=== PATIENT | male | born 1975 | race Two or more races ===

== ENCOUNTER 2024-10-16 01:57 | Inpatient (IN) | payer OTHER, SELFPAY ==
--- NOTE | ~2024-10-16 | CT_ITS ---
EXAMINATION: CT FOREARM WITH CONTRAST, LEFT CLINICAL INFORMATION: Severe pain and erythema with limited range of motion, left forearm. COMPARISON: None available. TECHNIQUE: Contiguous axial images through the left forearm using 3 mm collimation following the IV contrast administration 85 cc Omnipaque 350 strength without reported immediate complications. Sagittal and coronal reformatted images acquired. This CT examination was performed using dose optimization techniques as appropriate, variously including the following: *Automated exposure control *Adjustment of mA and/or kV according to patient size (this includes techniques or standardized protocols for targeted exams where dose is matched to indication/reason for exam; i.e. extremities or head) *Use of iterative reconstruction technique DLP: 178 mGy centimeter. FINDINGS: There is a peripheral enhancing lobulated and possibly loculated fluid density collection in the radiocarpal and to a lesser extent ulnar carpal compartment of the left wrist. I do not see gross osteolysis in the carpal bones or distal radius or ulna. There is edema pattern in a circumferential fashion extending from the skin to the fat planes of the left forearm from the elbow to wrist. The radius and ulna are intact. The vessels are patent. No gross fluid collections within the muscular structures of the left forearm. No acute cortical disruption or malalignment in the left elbow.. CT/CT forearm LT w IV con IMPRESSION: Concerning septic arthritis, left wrist and associated cellulitis, left forearm. Discussed with the physician assistant press operator Madelin Deleon at 10:10 AM. Electronically signed by: Tavon Zheng MD 10/16/2024 10:11 AM [facility]
--- NOTE | ~2024-10-16 | XR_ITS ---
EXAMINATION: XR FOREARM, LEFT CLINICAL INFORMATION: Question septic arthritis COMPARISON: CT postcontrast of the left forearm and wrist earlier same day. TECHNIQUE: AP and lateral views of the left forearm were obtained. FINDINGS: Normal bone mineralization. No fracture, dislocation, or suspicious bone lesion. No regional ostial lysis or focal osteopenia. Normal alignment. No elbow joint effusion. Diffuse subcutaneous soft tissue edema. XR/XR forearm LT 2V IMPRESSION: 1. No acute bony abnormalities. 2. Diffuse subcutaneous soft tissue edema. 3. Refer to the highly more specific and sensitive CT examination performed earlier same day. Electronically signed by: Dwayne Chaudhary MD 10/16/2024 01:03 PM [facility]
[2024-10-16 03:04] VITALS: BP 109/65; PULSE 118; RESP 12; TEMP 37.4; O2SAT 92; BMI 22.2
[2024-10-16 03:29] LABS: Hematocrit 34.2 % (42.0-52.0); Hemoglobin 11.5 g/dl (14.0-18.0); Mean Corpuscular HGB Conc 33.6 g/dl (31.0-36.0); Mean Corpuscular Hemoglobin 30.1 pg (27.0-33.0); Mean Corpuscular Volume 89.5 fL (80.0-98.0); Mean Platelet Volume 8.7 fL (9.4-12.4); Platelet Count 280 X10*3/uL (160-400); Red Blood Count 3.82 X10*6/uL (4.60-5.80); Red Cell Distribution Width 14.1 % (11.0-16.0); White Blood Count 4.5 X10*3/uL (4.8-10.8)
[2024-10-16 03:43] LABS: Alanine Aminotransferase 83 U/L (0-40); Albumin Level 3.6 g/dL (3.5-5.0); Alkaline Phosphatase 103 U/L (39-117); Anion Gap 9 (12-20); Aspartate Amino Transferase 76 U/L (5-37); Bilirubin Total 0.4 mg/dL (0.0-1.0); Blood Urea Nitrogen 16 mg/dL (9-16); Calcium 8.5 mg/dL (8.4-10.2); Carbon Dioxide 27 mmol/L (22-29); Chloride 106 mmol/L (96-108); Creatinine Clr Calc Pharmacy 105.9; Estimated Glomerular Filt Rate > 60; Glucose Random 87 mg/dL (60-115); Potassium 4.4 mmol/L (3.3-5.1); Sodium 138 mmol/L (135-145); Total Protein 7.7 g/dL (6.5-8.0)
--- NOTE | 2024-10-16 07:37 | ED_ITS ---
HPI - Extremity Problem General Chief complaint: Skin/Abscess/Foreign Body Stated complaint: infection on arm? Time Seen by Provider: 10/16/24 07:16 Source: patient Mode of arrival: ambulatory Limitations: no limitations History of Present Illness ED Provider: Ramona Deleon PA-C HPI Narrative: 48 yo male with history of opioid use disorder, uses IV drugs who presents to the ER for evaluation of worsening left forearm pain, swelling and redness for the last 2 day after injecting in the area. He reports he can't move his left arm well due to severe pain in the left forearm. He denies pain in the elbow but has pain in the wrist. Denies numbness or tingling. No fevers. Poor historian, lethargic. MD Complaint: extremity pain and extremity swelling Onset (ago): day(s) (2) Pain Consistency: constant Location: left and upper extremity Severity scale (1-10): 10 Quality: stabbing and aching Radiation: distal Relieving factors: immobilization Exacerbating factors: range of motion and palpation Associated symptoms: myalgias, arthralgias and rash Context: other (IVDA) Related Data Allergies Allergy/AdvReac Type Severity Reaction Status Date / Time No Known Allergies Allergy Unverified 10/16/24 03:06 [No Known Allergies*] Review of Systems 2 Review of Systems: Yes all other systems are reviewed and are negative [facility] Social History Social History Advance Directives: No Advance Directives Information Provided: Yes Physical Exam 2 Vital Signs: Vital Signs: Last Vital Signs Temp 99.3 F 10/16/24 03:04 Pulse 78 10/16/24 08:53 Resp 11 L 10/16/24 08:53 BP 115/78 10/16/24 08:53 Pulse Ox 96 10/16/24 08:53 O2 Del Method Room Air 10/16/24 08:53 BMI result Body Mass Index 22.2 Appearance: Lethargic, disheveled, poorly kempt Head: normocephalic, atraumatic. Eyes: Pupils pinpoint ENT: Pharynx normal. No tonsillar swelling or exudate. Neck: Normal inspection. Neck supple. CVS: Normal heart rate and rhythm. Pulses normal. Respiratory: No respiratory distress. Breath sounds normal. Abdomen: Soft and nontender. +BS x4 Skin: Skin warm and dry. Normal skin color. Normal skin turgor. No rashes. Extremities: No lower extremity edema. No joint swelling. Left forearm with diffuse erythema, warmth, tenderness on the flexor surface. Entire forearm is indurated without any palpable fluctuance. Nontender left elbow with full passive range of motion. Tenderness and limited range of motion of the left wrist. 2+ radial pulse. Cap refill less than 3 seconds. Pain with making a fist. Neuro/psych: Oriented X 3. Slow to respond. No motor deficit. No sensory deficit. CN II-XII intact. Medications Administered Discontinued Medications Generic Name Dose Route Start Last Admin Trade Name Freq PRN Reason Stop Dose Admin Ceftriaxone Sodium 1 gm 10/16/24 07:24 10/16/24 08:22 Ceftriaxone Sodium 1 Gm Vial IVPUSH 10/16/24 07:25 1 gm ONCE ONE Administration Hydromorphone HCl 1 mg 10/16/24 07:24 10/16/24 08:22 Hydromorphone Hcl 1 Mg/Ml Syringe IVPUSH 10/16/24 07:25 1 mg ONCE ONE Administration Protocol Vancomycin HCl 1,500 mg/ 500 mls @ 333.333 mls/hr 10/16/24 07:24 10/16/24 10:39 Sodium Chloride IV 10/16/24 08:53 Infused ONCE ONE Infusion Lactated Ringer's 1,000 mls @ 999 mls/hr 10/16/24 07:30 10/16/24 10:14 Lr IV 10/16/24 08:30 Infused .Q1H1M FRANK Infusion Iohexol 100 ml 10/16/24 09:33 10/16/24 09:35 Iohexol 350 Mg/Ml 100 Ml Infus..Btl IV 10/16/24 09:34 85 ml ONCE ONE Administration Ketorolac Tromethamine 15 mg 10/16/24 07:24 10/16/24 08:22 Ketorolac Tromethamine 15 Mg/Ml Vial IVPUSH 10/16/24 07:25 15 mg ONCE ONE Administration Medical Decision Making Medical Decision Making MDM Narrative: 48-year-old with history of opioid use disorder, active intravenous drug use who presents to the ER for 2 days of worsening left forearm pain, redness, swelling and limited movement of the left forearm and wrist. On examination he has diffuse erythema of the forearm consistent with cellulitis, no appreciated abscess. He is neurovascularly intact distally. He has exquisite tenderness on examination. CT scan was done to further evaluate. IV was established and he was given IV vancomycin and Rocephin for concerns of infection. Received a call from radiologist, there is concern for possible septic arthritis in the radial carpal joint with possible loculations. Hand surgeon Dr. Watson made aware of results. She advised keeping patient NPO until she can further evaluate the case. Will plan to admit for further management. Differential Diagnosis Differential Diagnoses: The differential diagnosis associated with the presentation includes Abscess, compartment syndrome, myositis, septic joint Admission/Observation Consideration of admission/observation: Escalation of care including admission/observation considered Consult Healthcare Provider Management of the patient was discussed with: Hospitalist and Coater Smoking Pipe Dr. Watson will evaluate - keep NPO for now Lab Data MDM Lab Attestation statement: I reviewed the patient's lab results. Mild normocytic anemia, leukopenia which is chronic, elevated ESR and CRP consistent with infection, chronically elevated LFTs 10/16/24 03:23 10/16/24 03:23 Labs: Lab Results 10/16/24 10/16/24 Range/Units 03:23 07:38 WBC 4.5 L (4.8-10.8) X10*3/uL RBC 3.82 L (4.60-5.80) X10*6/uL Hgb 11.5 L (14.0-18.0) g/dl Hct 34.2 L (42.0-52.0) % MCV 89.5 (80.0-98.0) fL MCH 30.1 (27.0-33.0) pg MCHC 33.6 (31.0-36.0) g/dl RDW 14.1 (11.0-16.0) % Plt Count 280 (160-400) X10*3/uL MPV 8.7 L (9.4-12.4) fL Absolute Nucleated RBC 0.000 (0.0-0.012) X10*3/uL Nucleated RBC % (auto) 0.0 (0.0-0.2) /100WBC ESR 38 H (0-15) MM/HR Sodium 138 (135-145) mmol/L Potassium 4.4 (3.3-5.1) mmol/L Chloride 106 (96-108) mmol/L Carbon Dioxide 27 (22-29) mmol/L Anion Gap 9 L (12-20) BUN 16 (9-16) mg/dL Creatinine 0.67 (0.5-1.4) mg/dL Estim Creat Clear Calc 105.9 Estimated GFR > 60 Random Glucose 87 (60-115) mg/dL Lactic Acid 0.6 (0.5-2.0) mmol/L Calcium 8.5 (8.4-10.2) mg/dL Total Bilirubin 0.4 (0.0-1.0) mg/dL AST 76 H (5-37) U/L ALT 83 H (0-40) U/L Alkaline Phosphatase 103 (39-117) U/L Total Creatine Kinase 153 (38-174) U/L C-Reactive Protein 4.17 H (< or = 0.50) mg/dL Total Protein 7.7 (6.5-8.0) g/dL Albumin 3.6 (3.5-5.0) g/dL Independent Interpretation I performed an independent interpretation of an: CT Scan Interpretation: Diffuse inflammation of the left forearm as noted in radiologist's read, agrees radiology read Radiology Impression Discussion of test interpretation with radiology: I have reviewed the radiologist's reading. Radiologist Impression: EXAMINATION: CT FOREARM WITH CONTRAST, LEFT CLINICAL INFORMATION: Severe pain and erythema with limited range of motion, left forearm. COMPARISON: None available. TECHNIQUE: Contiguous axial images through the left forearm using 3 mm collimation following the IV contrast administration 85 cc Omnipaque 350 strength without reported immediate complications. Sagittal and coronal reformatted images acquired. This CT examination was performed using dose optimization techniques as appropriate, variously including the following: *Automated exposure control *Adjustment of mA and/or kV according to patient size (this includes techniques or standardized protocols for targeted exams where dose is matched to indication/reason for exam; i.e. extremities or head) *Use of iterative reconstruction technique DLP: 178 mGy centimeter. FINDINGS: There is a peripheral enhancing lobulated and possibly loculated fluid density collection in the radiocarpal and to a lesser extent ulnar carpal compartment of the left wrist. I do not see gross osteolysis in the carpal bones or distal radius or ulna. There is edema pattern in a circumferential fashion extending from the skin to the fat planes of the left forearm from the elbow to wrist. The radius and ulna are intact. The vessels are patent. No gross fluid collections within the muscular structures of the left forearm. No acute cortical disruption or malalignment in the left elbow.. CT/CT forearm LT w IV con IMPRESSION: Concerning septic arthritis, left wrist and associated cellulitis, left forearm. External Record Review External record reviewed: Prior outpatient labs Prescription Management I considered prescription management with: Pain Medication and Antibiotic Chronic Conditions Patient?s care impacted by: Other (IVDA) Social Determinants Patient?s care significantly limited by Social Determinants of Health including: Problems related to primary support group and Other Social Determinant of Health Critical Care Time Critical Care Time Critical Care Time: Yes Total Critical Care Time: 36 Attestation: I have personally provided critical care time exclusive of time spent on separately billable procedures. Time includes review of lab data, radiology results, discussion with consultants, and monitoring for potential decompensation. Intervention performed as documented. Discharge Plan Discharge Clinical Impression: Cellulitis, Septic arthritis Patient Disposition: Admitted As Inpatient Print Language: Sinhala
[2024-10-16 07:53] LABS: C Reactive Protein 4.17 mg/dL (< or = 0.50)
[2024-10-16 08:00] LABS: Lactic Acid 0.6 mmol/L (0.5-2.0)
--- NOTE | 2024-10-16 08:20 | PC.NURSE ---
pt is extremely drowsy but arousable to voice command with some tactile touch needed , skin appropriate for ethnicity but unkempt in appearance, left arm very swollen/red/hard/and tender to touch, pt put on the monitor and is in normal sinus also on capnography but unable to obtain a reading do to shallow breathing by the patient, respirations very but mostly staying around 11, sating well at 94-96% on room air
[2024-10-16] MEDS: cefTRIAXone sodium 1 GM VIAL IVPUSH (08:22)
[2024-10-16] MEDS: HYDROmorphone HCl 1 MG/ML SYRINGE IVPUSH (08:22)
[2024-10-16] MEDS: Ketorolac Tromethamine 15 MG/ML VIAL IVPUSH (08:22)
[2024-10-16] MEDS: Lactated Ringers 1,000 ML 999 ML IV (08:28)
[2024-10-16 08:31] LABS: Erythrocyte Sedimentation Rate 38 MM/HR (0-15)
[2024-10-16] MEDS: vancomycin HCL 1,500 MG in 0.9 % Sodium Chloride 500 ML 333.33 MG IV (08:37)
[2024-10-16 08:53] VITALS: BP 115/78; PULSE 78; RESP 11; O2SAT 96
[2024-10-16] MEDS: iohexoL 350 MG/ML 100 ML INFUS..BTL IV (09:35)
--- NOTE | 2024-10-16 11:53 | PHA.MEDREC ---
Pharmacy Consult ? Medication Reconciliation Pharmacy has completed the medication reconciliation. Spoke with patient, he says he doesn't take anything at home. Has no recent pharmacy claims either.
--- NOTE | 2024-10-16 12:31 | P.HPHOSP_ITS ---
History of Present Illness Date of Service: 10/16/24 Chief Complaint: Left arm pain 48 yo male with history of IV drug injecton here wtith left forearm pain, swelling and erythema around area he injected about 2 to 3 days ago. He is experiencing much pain in the area, redness and appear to have possible collection there. He is afebrile, WBC is low. Xray show Concerning septic arthritis, left wrist and associated cellulitis, left forearm. Given IV Vancomycin and Ceftriaxone. Ortho consulted for possible I and D Review of Systems 2 Review of Systems: Gen: no fever Resp: no sob, no cough CV: no chest, no FINLEY, no leg edema GI: No n/v, no abd pain MSK: left arm pain Neuro: No confusion Yes all other systems are reviewed and are negative [facility] Social History Housing: Homeless Do you presently have visiting nurse or other home services: No Patient Tobacco Use Status: Current everyday Tobacco user Tobacco use type: Cigarette e-Cigarette/Vaping Use: Never Used Second Hand Smoke Exposure: No Substance Use Type: Crack/Cocaine, Marijuana and Opiates Meds Allergies Allergy/AdvReac Type Severity Reaction Status Date / Time No Known Allergies Allergy Unverified 10/16/24 03:06 [No Known Allergies*] Active Medications: Current Medications Acetaminophen (Acetaminophen 325 Mg Tablet) 650 mg PO Q6H PRN PRN Reason: Pain, Mild 1-3,fever,headache Calcium Carbonate (Calcium Carbonate 750 Mg Tab.Chew) 750 mg PO Q4H PRN PRN Reason: Heartburn Enoxaparin Sodium (Enoxaparin Sodium 40 Mg/0.4 Ml Syringe) 40 mg SUBCUT DAILY [facility] Magnesium Hydroxide (Milk Of Magnesia 30 Ml Oral.Susp) 30 ml PO DAILY PRN PRN Reason: Constipation Melatonin (Melatonin 3 Mg Tablet) 6 mg PO BEDTIME PRN PRN Reason: Insomnia Morphine Sulfate (Morphine Sulfate 4 Mg/Ml Cartridge) 2 mg IVPUSH Q6H PRN; Protocol PRN Reason: Pain, Severe (Pain Scale 7-10) Ondansetron HCl (Ondansetron Hcl 4 Mg/2 Ml Vial) 4 mg IVPUSH Q8H PRN PRN Reason: Nausea and Vomiting Oxycodone HCl (Oxycodone Hcl Immed Release 5 Mg Tablet) 5 mg PO Q6H PRN PRN Reason: Pain, Moderate(Pain Scale 4-6) Sodium Chloride (0.9 % Sodium Chloride Flush 3 Ml Syringe) 3 ml IVFLUSH QSHIFT [facility] Home Medications ?Medication ?Instructions ?Recorded ?Confirmed ?Last Taken ?Type No Known Home Meds 10/16/24 10/16/24 Unknown History Physical Exam 2 Vital Signs and Narrative: Vital Signs: Last Vital Signs Temp 99.3 F 10/16/24 03:04 Pulse 78 10/16/24 08:53 Resp 11 L 10/16/24 08:53 BP 115/78 10/16/24 08:53 Pulse Ox 96 10/16/24 08:53 O2 Del Method Room Air 10/16/24 08:53 BMI result Body Mass Index 22.2 Const: Other: General: AO X 3, no acute distress Resp: CTA bilateral CVS: S1,S2,RRR GI: +BS, NT, no distention Skin: swollen left forearm, minimal erythema, no fluctuance Neuro: motor grossly intact Psych: appropriate affect Results Labs 10/16/24 03:23 10/17/24 05:38 Labs: Laboratory Results - last 24 hr 10/16/24 10/16/24 03:23 07:38 MCV 89.5 MCH 30.1 MCHC 33.6 RDW 14.1 Plt Count 280 MPV 8.7 L Absolute Nucleated RBC 0.000 Nucleated RBC % (auto) 0.0 ESR 38 H Anion Gap 9 L Estim Creat Clear Calc 105.9 Estimated GFR > 60 Random Glucose 87 Lactic Acid 0.6 Calcium 8.5 Total Bilirubin 0.4 AST 76 H ALT 83 H Alkaline Phosphatase 103 Total Creatine Kinase 153 C-Reactive Protein 4.17 H Total Protein 7.7 Albumin 3.6 Imaging Radiologist's Impressions: Impressions Forearm CT 10/16/24 09:26 IMPRESSION: Concerning septic arthritis, left wrist and associated cellulitis, left forearm. Discussed with the physician front desk assistant Madelin Deleon at 10:10 AM. Electronically signed by: Tavon Zheng MD 10/16/2024 10:11 AM [facility] Assessment and Plan (1) Cellulitis: Qualifiers: Laterality: left Site of cellulitis: extremity Site of cellulitis of extremity: upper extremity Qualified Code(s): L03.114 - Cellulitis of left upper limb Status: Acute (2) Septic arthritis: Qualifiers: Laterality: left Septic arthritis location: wrist Septic arthritis organism: due to unspecified organism Qualified Code(s): M00.9 - Pyogenic arthritis, unspecified Status: Acute Plan 48-year-old male with history of intravenous drug use here with a left forearm cellulitis possible septic arthritis or abscess. Plan: IV vancomycin as started in the emergency room p. Morphine and oxycodone for pain. Orthopedic consultation and ID consult.. Follow cultures.. Opiate use disorder he says he is on methadone, will prescribe once verified. Addition med consult. DVT prophylaxis Lovenox Admission for at least 2 midnights for management of left forearm cellulitis, septic arthritis needing IV antibiotics at high risk for bacteremia Quality Stroke Does the patient have a stroke diagnosis?: No VTE Prior VTE?: No VTE Risk Level:: Medical - moderate - high VTE Device Contraindication: N/A - Device Ordered VTE Drug Contraindication: N/A - Med Ordered
[2024-10-16 13:41] VITALS: BP 140/95; PULSE 81; RESP 14; O2SAT 98
--- NOTE | 2024-10-16 13:42 | PC.NURSE ---
regular diet requested spike with dede in dietary
[2024-10-16 14:03] LABS: Amphetamine Screen Urine Not Detected (Not Detect); Barbiturates, Urine Not Detected (Not Detect); Benzodiazepines Screen Urine Not Detected (Not Detect); Buprenorphine Scr Not Detected (Not Detect); Cannabinoid Screen Urine POSITIVE (Not Detect); Cocaine Screen Urine POSITIVE (Not Detect); Fentanyl, urine POSITIVE (Not Detect); Methadone Screen, Urine Positive (Not Detect); Opiate Screen Urine POSITIVE (Not Detect); Oxycodone Screen Urine Not Detected (Not Detect); Phencyclidine Screen Urine Not Detected (Not Detect)
--- NOTE | 2024-10-16 14:20 | PC.NURSE ---
SECURITY CALLED TO BEDSIDE TO SEARCH PT BELONGINGS PRIOR TO TRANSFER TO [facility]
--- NOTE | 2024-10-16 14:33 | PC.NURSE ---
T/E WITH SECURITY STAFF CHANGED PT INTO HOSPITAL ATTIRE, BELONGINGS SEARCHED- [facility] PT CALM AND COOPERATIVE, NO COMPLAINTS AT THIS TIME. PT TO BE MOVED TO ED OVERFLOW
--- NOTE | 2024-10-16 14:40 | PC.NURSE ---
REPORT GIVEN TO JONATHAN WILL, PT TO BE TRANSFERRED TO [facility]
--- NOTE | 2024-10-16 15:22 | P.CONOP_ITS ---
History of Present Illness HPI Consult date: 10/16/24 Chief complaint: sepsis Narrative: The patient is a 48-year-old man who we were consulted to see in the emergency department for possible left septic wrist. He has a acute history of IV drug use and was complaining of left forearm pain and swelling. When I saw him in the emergency department he was sleeping peacefully. I did wake him up and asked him to point with 1 finger where he had the most pain. He pointed to the dorsal aspect of his mid forearm. The 2nd time I asked chandrakant pointed to the volar aspect of the mid forearm. PMFSH Social History Social History Smoked in Last 30 Days: No Use of substances other than those prescribed or required for medical reasons: Yes Advance Directives: No Advance Directives Information Provided: Yes Meds Allergies Allergy/AdvReac Type Severity Reaction Status Date / Time No Known Allergies Allergy Unverified 10/16/24 03:06 [No Known Allergies*] Active Medications: Current Medications Acetaminophen (Acetaminophen 325 Mg Tablet) 650 mg PO Q6H PRN PRN Reason: Pain, Mild 1-3,fever,headache Calcium Carbonate (Calcium Carbonate 750 Mg Tab.Chew) 750 mg PO Q4H PRN PRN Reason: Heartburn Enoxaparin Sodium (Enoxaparin Sodium 40 Mg/0.4 Ml Syringe) 40 mg SUBCUT DAILY [facility] Magnesium Hydroxide (Milk Of Magnesia 30 Ml Oral.Susp) 30 ml PO DAILY PRN PRN Reason: Constipation Melatonin (Melatonin 3 Mg Tablet) 6 mg PO BEDTIME PRN PRN Reason: Insomnia Morphine Sulfate (Morphine Sulfate 4 Mg/Ml Cartridge) 2 mg IVPUSH Q6H PRN; Protocol PRN Reason: Pain, Severe (Pain Scale 7-10) Ondansetron HCl (Ondansetron Hcl 4 Mg/2 Ml Vial) 4 mg IVPUSH Q8H PRN PRN Reason: Nausea and Vomiting Oxycodone HCl (Oxycodone Hcl Immed Release 5 Mg Tablet) 5 mg PO Q6H PRN PRN Reason: Pain, Moderate(Pain Scale 4-6) Sodium Chloride (0.9 % Sodium Chloride Flush 3 Ml Syringe) 3 ml IVFLUSH QSHIFT [facility] Physical Exam 2 Vital Signs: Vital Signs: Last Vital Signs Temp 99.3 F 10/16/24 03:04 Pulse 81 10/16/24 13:41 Resp 14 10/16/24 13:41 BP 140/95 H 10/16/24 13:41 Pulse Ox 98 10/16/24 13:41 O2 Del Method Room Air 10/16/24 13:41 BMI result Body Mass Index 22.2 Const: General: cooperative and no acute distress O rientation/consciousness: oriented to person and oriented to place HEENT: Head: Yes normocephalic and Yes atraumatic Eyes: EOM: EOMs intact bilaterally Resp: Effort & Inspection: normal respiratory effort and able to speak in complete sentences Cardio: Jugular venous distension: no JVD Skin: General skin exam: turgor normal Rashes: no rashes Neuro: General: oriented to person and oriented to place Extrem: Other: Evaluation of left Upper Extremity: Sensation grossly intact to all digits. Mild swelling in the left forearm. No visible swelling about the left wrist. Multiple wounds from IV drug use in various stages of healing throughout both upper extremities He was most tender over the volar and dorsal aspect of the left mid forearm. He was able to actively flex and extend at the elbow. He was able to bring his fingers close to a fist and into extension without difficulty. He had no pain at all with axial loading of his left wrist. No appreciable swelling of the left wrist except perhaps some mild swelling extending from the forearm dorsally. With encouragement he was able to demonstrate some flexion and extension at the wrist without significant discomfort. Radiographs: Three views of the left forearm were reviewed by me today. They showed no fractures or dislocations. No foreign bodies. No evidence of osteomyelitis. Psych: Appearance: grossly normal Affect: normal affect Attitude: c ooperative Results Labs 10/16/24 03:23 10/16/24 03:23 Labs: Abnormal lab results 10/16/24 10/16/24 Range/Units 03:23 13:44 WBC 4.5 L (4.8-10.8) X10*3/uL RBC 3.82 L (4.60-5.80) X10*6/uL Hgb 11.5 L (14.0-18.0) g/dl Hct 34.2 L (42.0-52.0) % MPV 8.7 L (9.4-12.4) fL ESR 38 H (0-15) MM/HR Anion Gap 9 L (12-20) AST 76 H (5-37) U/L ALT 83 H (0-40) U/L C-Reactive Protein 4.17 H (< or = 0.50) mg/dL Urine Opiates Screen POSITIVE H (Not Detect) Urine Methadone Screen Positive H (Not Detect) ng/mL Urine Fentanyl Screen POSITIVE H (Not Detect) Urine Cocaine Screen POSITIVE H (Not Detect) U Marijuana (THC) Screen POSITIVE H (Not Detect) H & H 10/16/24 Range/Units 03:23 Hgb 11.5 L (14.0-18.0) g/dl Hct 34.2 L (42.0-52.0) % All other labs normal. Assessment and Plan (1) Cellulitis of left forearm: Status: Acute Plan Assessment and plan: 1. Left forearm cellulitis secondary to IV drug use No clinical evidence of left wrist sepsis. Admit to Medicine for IV antibiotics. We will sign off at this time. Procedures Date of Service Date of Service: 10/16/24
--- NOTE | 2024-10-16 15:47 | PC.NURSE ---
pt brought from [facility] to overflow- pt sleeping, wakes to verbal stimulus but not answering questions, lt arm warm to touch, rr equal/non labored, lungs clear, hr wnl, this nurse was tiger texted that the patient now has inpt bed, will put in report.
[2024-10-16 16:51] VITALS: BMI 22.2
[2024-10-16 16:58] VITALS: BP 138/80; PULSE 91; RESP 18; TEMP 37.2; O2SAT 96
--- NOTE | 2024-10-16 18:23 | PHA.PROG ---
Admission Date/Time: October 16, 2024 11:35 Indication: SKIN Weight in k.8 kg Serum Creatinine - Last 168 Hours 10/16/24 03:23 Creatinine 0.67 Estimated CrCl and GFR - Last 168 Hours 10/16/24 03:23 Estim Creat Clear Calc 105.9 Estimated GFR > 60 Vancomycin Loading Dose: 1500 Current Vancomycin Dosing Regimen: 1000 Vancomycin Monitoring using AUC goal of 400 - 600 range with trough as surrogate marker: 491 Date and Time for next Vancomycin Level to be drawn 10/17 @ 1700 Pharmacist Comments on Vancomycin Plan: Vancomycin dosing will take advantage of DISKOVRe as a clinical decision support tool that uses Bayesian modeling to calculate individual patient's pharmacokinetic parameters and forecast the patient's drug concentration time course with the target goal AUC 24 range of 400 - 600 mg/L/hr.
[2024-10-16] MEDS: vancomycin HCL 1,000 MG in 0.9 % Sodium Chloride 250 ML 270 MG IV (18:38)
[2024-10-16 19:36] VITALS: BP 145/75; PULSE 94; RESP 18; TEMP 37.2; O2SAT 96
[2024-10-17 04:00] VITALS: BP 145/88; PULSE 78; RESP 18; TEMP 37.9; O2SAT 98
[2024-10-17] MEDS: Acetaminophen 325 MG TABLET 650 MG PO (06:06)
[2024-10-17] MEDS: vancomycin HCL 1,000 MG in 0.9 % Sodium Chloride 250 ML 270 MG IV (06:06)
[2024-10-17 07:31] LABS: Anion Gap 12 (12-20); Blood Urea Nitrogen 11 mg/dL (9-16); Calcium 8.9 mg/dL (8.4-10.2); Carbon Dioxide 23 mmol/L (22-29); Chloride 107 mmol/L (96-108); Creatinine Clr Calc Pharmacy 114.5; Estimated Glomerular Filt Rate > 60; Glucose Random 94 mg/dL (60-115); Potassium 3.9 mmol/L (3.3-5.1); Sodium 138 mmol/L (135-145)
[2024-10-17 07:54] VITALS: BP 122/66; PULSE 70; RESP 14; TEMP 36.6; O2SAT 98
--- NOTE | 2024-10-17 08:26 | HO.PM.IMPN ---
Subjective Subjective Date of Service: 10/17/24 Interval History: Follow-up on cellulitis of the forearm Interval history; patient was evaluated by Orthopedic surgery at with no indication for I and D Patient still with pain albeit better no significant redness noted. He is afebrile and cultures so far negative Physical Exam Vital Signs: Vital Signs: Last Vital Signs Temp 97.8 F 10/17/24 07:54 Pulse 70 10/17/24 07:54 Resp 14 10/17/24 07:54 BP 122/66 10/17/24 07:54 Pulse Ox 98 10/17/24 07:54 O2 Del Method Room Air 10/17/24 07:54 BMI result Body Mass Index 22.2 Const: Other: General: AO X 3, no acute distress Resp: CTA bilateral CVS: S1,S2,RRR GI: +BS, NT, no distention Skin: swollen left forearm, minimal erythema, no fluctuance Neuro: motor grossly intact Psych: appropriate affect Objective Data Active Medications Acetaminophen (Acetaminophen 325 Mg Tablet) 650 mg PO Q6H PRN PRN Reason: Pain, Mild 1-3,fever,headache Last Admin: 10/17/24 06:06 Dose: 650 mg Documented By: MARK Calcium Carbonate (Calcium Carbonate 750 Mg Tab.Chew) 750 mg PO Q4H PRN PRN Reason: Heartburn Enoxaparin Sodium (Enoxaparin Sodium 40 Mg/0.4 Ml Syringe) 40 mg SUBCUT DAILY [facility] Vancomycin HCl 1,000 mg/ (Sodium Chloride) 270 mls @ 270 mls/hr IV Q12H [facility] Last Infusion: 10/17/24 07:32 Dose: Infused Documented By: CYNTHIA Magnesium Hydroxide (Milk Of Magnesia 30 Ml Oral.Susp) 30 ml PO DAILY PRN PRN Reason: Constipation Melatonin (Melatonin 3 Mg Tablet) 6 mg PO BEDTIME PRN PRN Reason: Insomnia Morphine Sulfate (Morphine Sulfate 4 Mg/Ml Cartridge) 2 mg IVPUSH Q6H PRN; Protocol PRN Reason: Pain, Severe (Pain Scale 7-10) Ondansetron HCl (Ondansetron Hcl 4 Mg/2 Ml Vial) 4 mg IVPUSH Q8H PRN PRN Reason: Nausea and Vomiting Oxycodone HCl (Oxycodone Hcl Immed Release 5 Mg Tablet) 5 mg PO Q6H PRN PRN Reason: Pain, Moderate(Pain Scale 4-6) Pharmacy Consult (Consult Rx Vancomycin Dosing) 1 each MISCELLANE DAILY PRN PRN Reason: Consult order Sodium Chloride (0.9 % Sodium Chloride Flush 3 Ml Syringe) 3 ml IVFLUSH QSHIFT [facility] Last Admin: 10/17/24 00:34 Dose: Not Given Documented By: MARK Non-Admin Reason: flushed with med Labs 10/16/24 03:23 10/17/24 05:38 Labs: Laboratory Results - last 24 hr 10/16/24 10/16/24 10/17/24 03:23 13:44 05:38 ESR 38 H Hold Purple Top SEE NOTE Anion Gap 12 Estim Creat Clear Calc 114.5 Estimated GFR > 60 Random Glucose 94 Calcium 8.9 Urine Opiates Screen POSITIVE H Ur Buprenorphine Scrn Not Detected Ur Oxycodone Screen Not Detected Urine Methadone Screen Positive H Urine Fentanyl Screen POSITIVE H Ur Barbiturates Screen Not Detected Ur Phencyclidine Scrn Not Detected Ur Amphetamines Screen Not Detected U Benzodiazepines Scrn Not Detected Urine Cocaine Screen POSITIVE H U Marijuana (THC) Screen POSITIVE H Assessment and Plan (1) Cellulitis: Status: Acute Plan 48-year-old male with history of intravenous drug use here with a left forearm cellulitis possible septic arthritis or abscess. Plan: Cellulitis of right forearm d/t IV drug use: -IV vancomycin started 10/16 -Ortho recommend no intervention - Morphine and oxycodone for pain. -ID consultation -follow cultures Opiate use disorder/substance use disorder: Tox screen positive for opiate, methadone, fentanyl, cocaine, and marijuana. -Addition med consult. -Methadone once dose verified DVT prophylaxis Lovenox Admission for at least 2 midnights for management of left forearm cellulitis, septic arthritis needing IV antibiotics at high risk for bacteremia Quality Stroke Does the patient have a stroke diagnosis?: No VTE Prior VTE?: No VTE Risk Level:: Medical - moderate - high VTE Device Contraindication: N/A - Device Ordered VTE Drug Contraindication: N/A - Med Ordered
[2024-10-17] MEDS: 0.9 % Sodium Chloride Flush 3 ML SYRINGE IVFLUSH (08:32)
[2024-10-17] MEDS: Enoxaparin Sodium 40 MG/0.4 ML SYRINGE SUBCUT (08:32)
--- NOTE | 2024-10-17 13:13 | HO.ADDICTCON ---
History of Present Illness Date of Service: 10/17/2024 Chief Complaint: sepsis Reason for Consult: OUD Sources of Information: patient interviewed and chart reviewed HPI Narrative: Patient is a 48 year old male medically admitted with cellulitis of the forearm Consult requested as patient reported opiate use at time of admission Patient seen x2 today, 1st time sleeping, woke very briefly Reported he is prescribed methadone 40mg daily via [facility] Reports not feeling well. Ordered methadone 20mg x1 and reassessed 2 hours later Patient awake, alert, watching TV. Asking when he can leave. Observed to be yawning and restless. Reporting chills and body aches States that he has been taking methadone for about 3 months and has not increased dose beyond 40mg because he didn't want to have a hard time getting off of it . Briefly discussed benefits of increasing dose. He reports using approx a bundle of fentanyl daily with cocaine Denies alcohol use Reports history of overdose (unclear how many or when) Currently unhoused Review of Systems Constitutional: Reports as per HPI, Reports chills, Reports malaise and Reports poor appetite Diagnostics Vital Signs (24Hr): Vital Signs - 24 hr 10/16/24 13:41 10/16/24 16:58 10/16/24 19:36 Temperature 98.9 F 98.9 F Pulse Rate 81 91 94 Respiratory Rate 14 18 18 Blood Pressure 140/95 H 138/80 145/75 H Pulse Oximetry 98 96 96 Oxygen Delivery Method Room Air Room Air Room Air 10/17/24 04:00 10/17/24 07:54 Temperature 100.3 F 97.8 F Pulse Rate 78 70 Respiratory Rate 18 14 Blood Pressure 145/88 H 122/66 Pulse Oximetry 98 98 Oxygen Delivery Method Room Air Room Air BMI result Body Mass Index 22.2 Labs 10/16/24 03:23 10/17/24 05:38 Labs: Laboratory Results - last 48 hr 10/16/24 10/16/24 10/16/24 03:23 07:38 13:44 WBC 4.5 L RBC 3.82 L Hgb 11.5 L Hct 34.2 L MCV 89.5 MCH 30.1 MCHC 33.6 RDW 14.1 Plt Count 280 MPV 8.7 L Absolute Nucleated RBC 0.000 Nucleated RBC % (auto) 0.0 ESR 38 H Hold Purple Top Sodium 138 Potassium 4.4 Chloride 106 Carbon Dioxide 27 Anion Gap 9 L BUN 16 Creatinine 0.67 Estim Creat Clear Calc 105.9 Estimated GFR > 60 Random Glucose 87 Lactic Acid 0.6 Calcium 8.5 Total Bilirubin 0.4 AST 76 H ALT 83 H Alkaline Phosphatase 103 Total Creatine Kinase 153 C-Reactive Protein 4.17 H Total Protein 7.7 Albumin 3.6 Urine Opiates Screen POSITIVE H Ur Buprenorphine Scrn Not Detected Ur Oxycodone Screen Not Detected Urine Methadone Screen Positive H Urine Fentanyl Screen POSITIVE H Ur Barbiturates Screen Not Detected Ur Phencyclidine Scrn Not Detected Ur Amphetamines Screen Not Detected U Benzodiazepines Scrn Not Detected Urine Cocaine Screen POSITIVE H U Marijuana (THC) Screen POSITIVE H 10/17/24 05:38 WBC RBC Hgb Hct MCV MCH MCHC RDW Plt Count MPV Absolute Nucleated RBC Nucleated RBC % (auto) ESR Hold Purple Top SEE NOTE Sodium 138 Potassium 3.9 Chloride 107 Carbon Dioxide 23 Anion Gap 12 BUN 11 Creatinine 0.62 Estim Creat Clear Calc 114.5 Estimated GFR > 60 Random Glucose 94 Lactic Acid Calcium 8.9 Total Bilirubin AST ALT Alkaline Phosphatase Total Creatine Kinase C-Reactive Protein Total Protein Albumin Urine Opiates Screen Ur Buprenorphine Scrn Ur Oxycodone Screen Urine Methadone Screen Urine Fentanyl Screen Ur Barbiturates Screen Ur Phencyclidine Scrn Ur Amphetamines Screen U Benzodiazepines Scrn Urine Cocaine Screen U Marijuana (THC) Screen Imaging Radiology Impressions: ITS Impressions Forearm CT 10/16/24 09:26 IMPRESSION: Concerning septic arthritis, left wrist and associated cellulitis, left forearm. Discussed with the physician delivery driver assistant Madelin Deleon at 10:10 AM. Electronically signed by: Tavon Zheng MD 10/16/2024 10:11 AM EST RP Forearm X-Ray 10/16/24 12:30 IMPRESSION: 1. No acute bony abnormalities. 2. Diffuse subcutaneous soft tissue edema. 3. Refer to the highly more specific and sensitive CT examination performed earlier same day. Electronically signed by: Dwayne Chaudhary MD 10/16/2024 01:03 PM EST RP Mental Status Exam Mental Status Exam Patient Appearance: Unkempt Patient Orientation: Person, Place, Time and Situation Level of Consciousness: Awake, Appropriate and Alert Patient Behavior: Appropriate Mood Description: Calm Affect Description: Calm Speech Pattern: Clear Medications Medications Current Medications Acetaminophen (Acetaminophen 325 Mg Tablet) 650 mg PO Q6H PRN PRN Reason: Pain, Mild 1-3,fever,headache Last Admin: 10/17/24 06:06 Dose: 650 mg Calcium Carbonate (Calcium Carbonate 750 Mg Tab.Chew) 750 mg PO Q4H PRN PRN Reason: Heartburn Enoxaparin Sodium (Enoxaparin Sodium 40 Mg/0.4 Ml Syringe) 40 mg SUBCUT DAILY [facility] Last Admin: 10/17/24 08:32 Dose: 40 mg Vancomycin HCl 1,000 mg/ (Sodium Chloride) 270 mls @ 270 mls/hr IV Q12H [facility] Last Infusion: 10/17/24 07:32 Dose: Infused Magnesium Hydroxide (Milk Of Magnesia 30 Ml Oral.Susp) 30 ml PO DAILY PRN PRN Reason: Constipation Melatonin (Melatonin 3 Mg Tablet) 6 mg PO BEDTIME PRN PRN Reason: Insomnia Morphine Sulfate (Morphine Sulfate 4 Mg/Ml Cartridge) 2 mg IVPUSH Q6H PRN; Protocol PRN Reason: Pain, Severe (Pain Scale 7-10) Ondansetron HCl (Ondansetron Hcl 4 Mg/2 Ml Vial) 4 mg IVPUSH Q8H PRN PRN Reason: Nausea and Vomiting Oxycodone HCl (Oxycodone Hcl Immed Release 5 Mg Tablet) 5 mg PO Q6H PRN PRN Reason: Pain, Moderate(Pain Scale 4-6) Pharmacy Consult (Consult Rx Vancomycin Dosing) 1 each MISCELLANE DAILY PRN PRN Reason: Consult order Sodium Chloride (0.9 % Sodium Chloride Flush 3 Ml Syringe) 3 ml IVFLUSH QSHIFT [facility] Last Admin: 10/17/24 08:32 Dose: 3 ml Allergies Allergies Allergy/AdvReac Type Severity Reaction Status Date / Time No Known Allergies Allergy Unverified 10/16/24 03:06 [No Known Allergies*] Assessment & Plan Assessment & Plan (1) Opioid use disorder, severe, dependence: Status: Acute Code(s): F11.20 - Opioid dependence, uncomplicated Assessment and Plan: additional methadone 20mg (total of 40mg today) resume 40mg daily in AM --will revisit increase in dose with patient if he is open to it encourage comfort meds as needed mirtazipine 7.5mg bedtime to assist with sleep Total time managing care of this patient today __45__ minutes. [facility] Social History Social History Housing: Homeless Do you presently have visiting nurse or other home services: No Patient Tobacco Use Status: Current everyday Tobacco user Tobacco use type: Cigarette e-Cigarette/Vaping Use: Never Used Second Hand Smoke Exposure: No Substance Use Type: Crack/Cocaine, Marijuana and Opiates service: No
[2024-10-17] MEDS: methADONE HCl 20 MG/2 ML ORAL.CONC PO (13:50)
--- NOTE | 2024-10-17 13:56 | MHC.CM.PN ---
Patient reports that he is homeless. He is independent with all functional mobility. Reports Infection from injecting. Initial blood cultures are neg. IV Vanco ordered for infection. Pending final cultures PO ABX will be ordered for discharge. Recovery Team consult is pending. DP Self care with community resource info provided by the Recovery team. Patient will need assist with transportation.
[2024-10-17 15:17] VITALS: BP 129/79; PULSE 70; RESP 16; TEMP 37.1; O2SAT 97
--- NOTE | 2024-10-17 17:49 | P.DS_ITS ---
DS: Providers Provider Date of Service: 10/17/24 Date of admission: 10/16/24 11:35 Date of discharge: 10/17/24 Primary care physician: Unknown Physician Consults: 10/16/24 10:11 Consult to Orthopedics Stat [place] [facility] [place] [facility] Reason for consultation: septic arthritis radial carpal joint Has provider been notified: Yes 10/16/24 11:25 Consult to Infectious Diseases Routine Consulting [place] [facility] [place] [facility] Reason for consultation: Sepsis, right arm cellulitis Has provider been notified: No 10/17/24 12:07 Addiction Medicine Routine Consulting Provider: Addiction Covering Reason for consultation: poly sub use DS: Diagnosis Discharge Diagnosis (1) Cellulitis: Status: Acute DS: Summary Hospital Course Hospital Course: The patient was receiving antibiotics for cellulitis of the left forearm but has decided to leave against medical advice (AMA). The risks of leaving AMA were thoroughly discussed with him, including the potential for worsening infection, loss of the limb, and even the possibility of . The patient acknowledged these risks and stated he is willing to accept them. He has agreed to take antibiotics, which were sent to his requested pharmacy at [address] [place] [address]. He was also advised to follow up with his primary care provider within a week and was further counseled to avoid illicit substance use. RN was present during the conversation Final diagnoses: Cellulitis of the left forearm Polysubstance use disorder opioid dependence Time Attestation Discharge Coordination Time (in mins): 20 Quality: Safe Use of Opioids Does Pt have an Active Cancer Diagnosis on the Problem List?: No Quality: Stroke Does the patient have a stroke diagnosis?: No Physical Exam Vital Signs: Vital Signs: Last Vital Signs Temp 98.7 F 10/17/24 15:17 Pulse 70 10/17/24 15:17 Resp 16 10/17/24 15:17 BP 129/79 10/17/24 15:17 Pulse Ox 97 10/17/24 15:17 O2 Del Method Room Air 10/17/24 15:17 BMI result Body Mass Index 22.2 DS: Data Data Completed and Pending Labs on day of discharge: Laboratory Results - last 24 hr 10/17/24 05:38 Hold Purple Top SEE NOTE Sodium 138 Potassium 3.9 Chloride 107 Carbon Dioxide 23 Anion Gap 12 BUN 11 Creatinine 0.62 Estim Creat Clear Calc 114.5 Estimated GFR > 60 Random Glucose 94 Calcium 8.9 Preliminary micro results at discharge 10/16/24 08:07 Blood Culture - Preliminary Blood - Venous No growth after 24 hours. 10/16/24 07:38 Blood Culture - Preliminary Blood - Venous No growth after 24 hours. Discharge Plan Discharge Anticipated Discharge Date/Time: 10/17/24 17:13 Patient Disposition: Left Against Medical Advice Discharge Diagnosis: Cellulitiso left arm Referrals: Physician,Unknown J [Primary Care Provider] - 1 Week Discharge Medications: New doxycycline monohydrate 100 mg capsule 100 mg PO BID Qty: 14 0RF Discharge Orders: Discharge Order (Routine); Ordered 10/17/24 Ordered By: Ambrocio Godoy Diet: Advance to usual diet Activity on Discharge: As tolerated Print Language: Belarusian Care Plan Goals: recovery from cellulitis left forearm Health Concerns: Colitis of the left forearm Polysubstance use disorder Plan of Treatment: Take doxycycline as recommended and follow-up with your doctor within a week, Avoid using drugs You understand your left against medical advice and has 2 more responsibility for your health including the possibility of Assessment: See above Discharge Date/Time: 10/17/24 17:33
== END 2024-10-17 17:33 | disposition left against medical advice (07) | DRG 383 ==
LOC: HO.ED 11:43 → HO.EDOVER 11:44 → HO.S3 15:43
PROVIDERS: Physician Assistant; Admitting Provider Internal Medicine; Emergency Provider Student in an Organized Health Care Education/Training Program; Visit Provider Internal Medicine
DX: L03.114 Cellulitis of left upper limb (principal); F11.90 Opioid use, unspecified, uncomplicated; F17.210 Nicotine dependence, cigarettes, uncomplicated; Z71.6 Tobacco abuse counseling
CPT/HCPCS: 36415; 73090; 73201; 80048; 80053; 80307; 82550; 83605; 85027; 85652; 86140; 87040; 99221; 99285; J0696; J1171; J1650; J1885; J3370; J3371; J7120; Q9967

== ENCOUNTER → 2024-10-16 07:24 | Outpatient (BNV) | payer MEDICAID, SELFPAY | PROVIDERS: Emergency Provider Student in an Organized Health Care Education/Training Program; Visit Provider Radiology Diagnostic Radiology | DX: M79.632 Pain in left forearm (principal) | CPT/HCPCS: 73090; 73201 ==

== ENCOUNTER → 2024-10-16 11:35 | Outpatient (BNV) | payer MEDICAID, SELFPAY | PROVIDERS: Admitting Provider Internal Medicine; Emergency Provider Student in an Organized Health Care Education/Training Program; Visit Provider Orthopaedic Surgery | DX: L03.114 Cellulitis of left upper limb (principal) | CPT/HCPCS: 99222 ==

== ENCOUNTER → 2024-10-16 11:35 | Outpatient (BNV) | payer OTHER, SELFPAY | PROVIDERS: Admitting Provider Internal Medicine; Emergency Provider Student in an Organized Health Care Education/Training Program; Visit Provider Nurse Practitioner Psychiatric/Mental Health | DX: F11.20 Opioid dependence, uncomplicated (principal) | CPT/HCPCS: 99222 ==

== ENCOUNTER → 2024-10-16 11:35 | Outpatient (BNV) | payer MEDICAID, SELFPAY | PROVIDERS: Admitting Provider Internal Medicine; Emergency Provider Student in an Organized Health Care Education/Training Program; Visit Provider Internal Medicine | DX: L03.114 Cellulitis of left upper limb (principal); M00.822 Arthritis due to other bacteria, left elbow; Z53.29 Procedure and treatment not carried out because of patient's decision for other reasons | CPT/HCPCS: 99223; 99238 ==